=== PATIENT | male | born 1975 | race Caucasian/White ===

== ENCOUNTER 2020-10-05 18:28 | Emergency (ER) | payer OTHER ==
[~2020-10-05] VITALS: Ht 175.3 cm; Wt 56.7 kg
[2020-10-05] MEDS ORDERED: VENTOLIN HFA18 GM INH (18:53)
[2020-10-05] MEDS ORDERED: TEGRETOL XR100 MG PO (18:53)
== END 2020-10-05 21:04 | disposition home or self-care (01) ==
LOC: ED 18:28
DX: S80.10XA Contusion of unspecified lower leg, initial encounter (principal); S80.211A Abrasion, right knee, initial encounter; S90.511A Abrasion, right ankle, initial encounter; W18.30XA Fall on same level, unspecified, initial encounter; J45.909 Unspecified asthma, uncomplicated; F17.200 Nicotine dependence, unspecified, uncomplicated; Z79.899 Other long term (current) drug therapy
CPT/HCPCS: 73552; 73590; 99283-25

== ENCOUNTER 2021-04-20 18:46 | Emergency (ER) | payer OTHER ==
[~2021-04-20] VITALS: Ht 175.3 cm; Wt 56.7 kg
[~2021-04-20 18:46] MED LIST: TEGRETOL XR100 MG PO; VENTOLIN HFA18 GM INH
[2021-04-20] MEDS ORDERED: IBU600 MG PO (22:06)
[2021-04-20] MEDS ORDERED: TYLENOL EXTRA500 MG PO (22:06)
[2021-04-20] MEDS ORDERED: CARBAMAZEPINE100 M1 PO (22:57)
--- NOTE | 2021-04-21 16:20 | EKG ---
[facility] [address] [facility] [place], [place] [address] Signed Sinus bradycardia Septal infarct , age undetermined Abnormal ECG No previous ECGs available Confirmed by NATASHA HUFFMAN DO ([id number]) on 04/21/2021 4:20:41 PM Electronically Signed By: NATASHA HUFFMAN DO 04/21/21 1620 PATIENT NAME: KEIRY ARCHULETA DUSTY Electrocardiogram DATE OF : 73 PHYSICIAN: NATASHA HUFFMAN DO REPORT #: [id number] REPORT IS CONFIDENTIAL AND NOT TO BE RELEASED WITHOUT AUTHORIZATION
== END 2021-04-20 23:18 | disposition home or self-care (01) ==
LOC: ED 18:46
DX: R41.82 Altered mental status, unspecified (principal); R56.9 Unspecified convulsions; J45.909 Unspecified asthma, uncomplicated; F17.200 Nicotine dependence, unspecified, uncomplicated; Z79.899 Other long term (current) drug therapy; Z20.822 Contact with and (suspected) exposure to COVID-19
CPT/HCPCS: 36415; 70450; 71045; 80053; 81001; 85025; 93005; 93010; 96374; 96375; 99285-25; A9270; G0480; J0780; J1885; J7121; U0003